=== PATIENT | female | born 1995 | race Caucasian/White ===

== ENCOUNTER 2018-10-15 13:50 | Emergency (ER) | payer OTHER ==
[2018-10-15 15:12] VITALS: BP 126/67
--- NOTE | 2018-10-15 15:42 | UC ---
Complaint Female HPI - HPI Summary HPI Summary: patient was treated for BV and has been taking flagyl for 1 day. she noticed some blood tinged discharge yesterday, woke up this morning with blood, almost like a period flow. she is having some cramping in the lower abdomen. has had full [employer] work up in june due to some irregular heavy bleeding. has been on the same control pill for the past 3 years. states last sexual encoutner was over 1 month ago. - History Of Current Complaint Chief Complaint: UCGU Stated Complaint: PERSONAL Time Seen by Provider: 10/15/18 15:13 Hx Obtained From: Patient Hx Last Menstrual Period: 10/03/18 ?: No Onset/Duration: Sudden Onset, Lasting Days Timing: Constant Severity Initially: Moderate Severity Currently: Moderate Pain Intensity: 4 Associated Signs And Symptoms: Positive: Vaginal Bleeding/Discharge - Allergies/Home Medications Allergies/Adverse Reactions: Allergies Allergy/AdvReac Type Severity Reaction Status Date / Time No Known Allergies Allergy Verified 10/15/18 15:13 Home Medications: Home Medications Tri-Estarylla (Nf) [Tri-Estarylla] 1 tab PO 10/15/18 [History] metroNIDAZOLE TAB* [Flagyl 250 mg TAB*] 250 mg PO TID 10/15/18 [History Confirmed 10/15/18] PMH/Surg Hx/FS Hx/Imm Hx Previously Healthy: Yes - Surgical History Surgical History: None - Family History Known Family History: Positive: Hypertension - Social History Alcohol Use: Rare Substance Use Type: Marijuana Substance Use Comment - Amount & Last Used: 5 times a month Smoking Status (MU): Never Smoked Tobacco Review of Systems All Other Systems Reviewed And Are Negative: Yes Constitutional: Positive: Negative Skin: Positive: Negative Eyes: Positive: Negative ENT: Positive: Negative Respiratory: Positive: Negative Cardiovascular: Positive: Negative Gastrointestinal: Positive: Negative Genitourinary: Positive: Vaginal/Penile Discharge Motor: Positive: Negative Neurovascular: Positive: Negative Musculoskeletal: Positive: Negative Neurological: Positive: Negative Psychological: Positive: Negative Is Patient Immunocompromised?: No Physical Exam Triage Information Reviewed: Yes Appearance: Well-Appearing, Well-Nourished, Pain Distress Vital Signs: Initial Vital Signs Temp 98.2 F 10/15/18 15:04 Pulse 80 10/15/18 15:04 Resp 18 10/15/18 15:04 BP 126/67 10/15/18 15:04 Pulse Ox 100 10/15/18 15:04 Vital Signs Reviewed: Yes Eye Exam: Normal ENT Exam: Normal Dental Exam: Normal Neck exam: Normal Respiratory Exam: Normal Cardiovascular Exam: Normal Abdominal Exam: Normal Abdomen Description: Positive: Nontender, No Organomegaly, Soft, CVA Tenderness (R) - neg, CVA Tenderness (L) - neg Bowel Sounds: Positive: Present Pelvic Exam: Positive: Bimanual Exam Normal, No Cerv. Motion Tender, No Masses, Discharge - blood tinged green discharge from the cervical OS, Lesions - 2 white circular lesions noted on the cervix at 5 and 7 o clock they are unable to remove with a swab. Musculoskeletal Exam: Normal Neurological Exam: Normal Psychological Exam: Normal Skin Exam: Normal Complaint Female Dx - Course Course Of Treatment: hx obtained, exam performed, meds reviewed, pelvic exam performed. patient is currently awaiting results from the STD testing done at the [facility], no further testing was done at this time. recommend follow up a the [facility] for the lesions and further workup for bleeding, - Differential Dx/Diagnosis Differential Diagnosis/HQI/PQRI: Cervicitis, Pelvic Inflammatory Disease, Urinary Tract Infection Provider Diagnosis: Vaginosis, Lesion of cervix Discharge - Sign-Out/Discharge Documenting (check all that apply): Patient Departure All imaging exams completed and their final reports reviewed: No Studies - Discharge Plan Condition: Stable Disposition: HOME Patient Education Materials: Bacterial Vaginosis (ED) Referrals: No Primary Care Phys,NOPCP [Primary Care Provider] - [facility] [Outside] Additional Instructions: 1. follow up with the [facility] for the lesions found on the cervix. - Billing Disposition and Condition Condition: STABLE Disposition: Home - Attestation Statements Provider Attestation: I was available for consult. This patient was seen by the [facility]. The patient was not presented to , seen by or examined by ny -Pratik Michel MD
== END 2018-10-15 16:09 | disposition home or self-care (01) ==
LOC: UCCORT 13:50
DX: N76.0 Acute vaginitis (principal); N89.8 Other specified noninflammatory disorders of vagina
CPT/HCPCS: 99202; G0463